=== PATIENT | female | born 1945 | race Caucasian/White ===

== ENCOUNTER 2020-04-06 13:45 | Inpatient (IN) ==
[2020-04-06 14:47] LABS: Albumin 3.6 G/DL (3.4-5.0); Bilirubin,Total 0.4 MG/DL (0.2-1.0); Calcium 8.5 MG/DL (8.5-10.1); Osmolality,Calculated 265.8 MOS/KG (273-304); Potassium 3.9 MMOL/L (3.5-5.1); Total Protein 6.7 G/DL (6.4-8.3)
[2020-04-06 15:01] LABS: Basophils % 0.2 % (0.0-0.8); Eosinophils % 0.1 % (0.00-10.9); Hematocrit 39.7 VOL% (35.7-47.0); Hemoglobin 10.9 GM/DL (12.0-16.0); Immature Granulocytes % 0.9 %; Immature Granulocytes Absolute 0.09 #; Lymphocytes # 0.3 10*3/uL (1.4-4.0); Lymphocytes % 2.5 % (21.3-54.2); Mean Corpuscular HGB Conc 27.5 GM/DL (32-36); Mean Corpuscular Volume 65.1 FL (87-102); Monocytes % 0.8 % (1.7-12.7); Neutrophils % 95.5 % (38.7-73.9); Platelet Count 191 T/CUMM (130-400); Red Cell Distribution Width 22.6 % (9.3-17.3); White Blood Count 10.5 T/CUMM (4-12)
[2020-04-06 15:02] LABS: Partial Thromboplastin Time 37.7 SECS (23.9-33.8)
[2020-04-06 15:25] LABS: Band Neutrophils 3 % (0-10); Lymphocytes 2 % (20-55); Platelet Estimate Normal; Segmented Neutrophils 94 % (50-85); Total Cells Counted 100
[2020-04-06 15:26] LABS: Hypochromasia 1+
[2020-04-06] MEDS ORDERED: GLUCAGON 1 MG VIAL IM PRN (16:28)
[2020-04-06] MEDS ORDERED: DEXTROSE 50% 25 GM/50 ML VIAL IV PRN (16:28)
[2020-04-06] MEDS ORDERED: ACETAMINOPHEN 325 MG TABLET PO PRN (16:28)
[2020-04-06] MEDS ORDERED: ONDANSETRON 4 MG/2 ML VIAL IV PRN (16:28)
[2020-04-06] MEDS: INSULIN REGULAR 100 UNIT/ML SUBCUT SCH ×2 (19:05→22:05)
[2020-04-06] MEDS ORDERED: GABAPENTIN 600 MG TABLET PO SCH (21:00)
[2020-04-06] MEDS: CLORAZEPATE 7.5 MG TABLET PO PRN (21:31)
[2020-04-06] MEDS: amLODIPine 5 MG TABLET PO SCH (21:32)
[2020-04-06] MEDS: GABAPENTIN 600 MG TABLET PO SCH (21:32)
[2020-04-06] MEDS: traMADol 50 MG TABLET PO PRN (21:33)
[2020-04-06] MEDS: ENOXAPARIN 40 MG/0.4 ML SYRINGE SUBCUT SCH (21:35)
[2020-04-07 06:25] LABS: Bilirubin,Total 1.3 MG/DL (0.2-1.0); Calcium 8.5 MG/DL (8.5-10.1); Osmolality,Calculated 265.4 MOS/KG (273-304)
[2020-04-07] MEDS: LEVOTHYROXINE 150 MCG TABLET PO SCH (06:36)
[2020-04-07] MEDS: INSULIN REGULAR 100 UNIT/ML SUBCUT SCH ×4 (07:04→20:19)
[2020-04-07] MEDS ORDERED: ROSUVASTATIN 10 MG TABLET PO SCH (09:00)
[2020-04-07] MEDS: ASPIRIN 325 MG TABLET PO SCH (09:14)
[2020-04-07] MEDS: ENALAPRIL 20 MG TABLET PO SCH (09:15)
[2020-04-07] MEDS: hydroCHLOROthiazide 25 MG TABLET PO SCH (09:15)
[2020-04-07] MEDS: PANTOPRAZOLE 40 MG TABLET PO SCH (09:15)
[2020-04-07] MEDS: GABAPENTIN 600 MG TABLET PO SCH ×3 (09:15→20:19)
[2020-04-07] MEDS: FLUoxetine 20 MG CAPSULE PO SCH (09:42)
[2020-04-07] MEDS: NICOTINE 14 MG/24 HR PATCH TRANSDERM PRN (18:22)
[2020-04-07] MEDS: amLODIPine 5 MG TABLET PO SCH (20:19)
[2020-04-07] MEDS: ROSUVASTATIN 10 MG TABLET PO SCH (20:19)
[2020-04-07] MEDS: ENOXAPARIN 40 MG/0.4 ML SYRINGE SUBCUT SCH (20:19)
[2020-04-07] MEDS: CLORAZEPATE 7.5 MG TABLET PO PRN (20:30)
[2020-04-07] MEDS: traMADol 50 MG TABLET PO PRN (20:30)
[2020-04-08] MEDS: LEVOTHYROXINE 150 MCG TABLET PO SCH (05:54)
[2020-04-08] MEDS: CLORAZEPATE 7.5 MG TABLET PO PRN ×2 (08:33→21:09)
[2020-04-08] MEDS: hydroCHLOROthiazide 25 MG TABLET PO SCH (08:33)
[2020-04-08] MEDS: FLUoxetine 20 MG CAPSULE PO SCH (08:34)
[2020-04-08] MEDS: GABAPENTIN 600 MG TABLET PO SCH ×3 (08:34→20:52)
[2020-04-08] MEDS: ENALAPRIL 20 MG TABLET PO SCH (08:34)
[2020-04-08] MEDS: ASPIRIN 325 MG TABLET PO SCH (08:34)
[2020-04-08] MEDS: PANTOPRAZOLE 40 MG TABLET PO SCH (08:34)
[2020-04-08] MEDS: traMADol 50 MG TABLET PO PRN ×2 (08:35→21:08)
[2020-04-08] MEDS: INSULIN REGULAR 100 UNIT/ML SUBCUT SCH ×4 (09:47→21:53)
[2020-04-08] MEDS: NICOTINE 14 MG/24 HR PATCH TRANSDERM PRN (17:16)
[2020-04-08] MEDS: ENOXAPARIN 40 MG/0.4 ML SYRINGE SUBCUT SCH (20:51)
[2020-04-08] MEDS: ROSUVASTATIN 10 MG TABLET PO SCH (20:52)
[2020-04-09] MEDS: LEVOTHYROXINE 150 MCG TABLET PO SCH (05:59)
[2020-04-09 07:20] LABS: Calcium 8.6 MG/DL (8.5-10.1); Osmolality,Calculated 266.4 MOS/KG (273-304); Potassium 4.1 MMOL/L (3.5-5.1)
[2020-04-09 08:31] LABS: Basophils % 0.6 % (0.0-0.8); Eosinophils # 0.2 10*3/uL (0.0-0.87); Eosinophils % 2.9 % (0.00-10.9); Hematocrit 29.2 VOL% (35.7-47.0); Immature Granulocytes % 0.8 %; Immature Granulocytes Absolute 0.04 #; Lymphocytes # 0.7 10*3/uL (1.4-4.0); Lymphocytes % 13.8 % (21.3-54.2); Mean Corpuscular HGB Conc 27.7 GM/DL (32-36); Mean Corpuscular Volume 66.4 FL (87-102); Mean Platelet Volume 9.8 FL (9.6-12.0); Monocytes % 8.6 % (1.7-12.7); Neutrophils % 73.3 % (38.7-73.9); Platelet Count 185 T/CUMM (130-400); Red Cell Distribution Width 22.8 % (9.3-17.3); White Blood Count 5.2 T/CUMM (4-12)
[2020-04-09 08:36] LABS: Hemoglobin 8.1 GM/DL (12.0-16.0)
[2020-04-09] MEDS: ENALAPRIL 20 MG TABLET PO SCH (08:51)
[2020-04-09] MEDS: hydroCHLOROthiazide 25 MG TABLET PO SCH (08:51)
[2020-04-09] MEDS: PANTOPRAZOLE 40 MG TABLET PO SCH (08:52)
[2020-04-09] MEDS: GABAPENTIN 600 MG TABLET PO SCH ×3 (08:52→20:51)
[2020-04-09] MEDS: FLUoxetine 20 MG CAPSULE PO SCH (08:58)
[2020-04-09] MEDS: ASPIRIN 325 MG TABLET PO SCH (08:58)
[2020-04-09] MEDS: CLORAZEPATE 7.5 MG TABLET PO PRN ×2 (09:01→20:51)
[2020-04-09] MEDS: traMADol 50 MG TABLET PO PRN ×2 (09:01→20:51)
[2020-04-09 09:22] LABS: Platelet Estimate Adequate
[2020-04-09 09:23] LABS: Hypochromasia 1+; Microcytosis 1+
[2020-04-09] MEDS: INSULIN REGULAR 100 UNIT/ML SUBCUT SCH ×4 (09:44→20:45)
[2020-04-09] MEDS: POLYETHYLENE GLYCOL POWDER 17 GM PACK PO SCH (15:47)
[2020-04-09] MEDS: NICOTINE 14 MG/24 HR PATCH TRANSDERM PRN (18:51)
[2020-04-09] MEDS: ROSUVASTATIN 10 MG TABLET PO SCH (20:44)
[2020-04-09] MEDS: ENOXAPARIN 40 MG/0.4 ML SYRINGE SUBCUT SCH (20:44)
[2020-04-10 04:24] LABS: ABG Base Excess 3.5 MMOL/L (-2.5-2.5); ABG HCO3 27.4 MMOL/L (20-26); ABG Oxygen Saturation 97.1 % (95-100); ABG PCO2 38.1 MM HG (35-48); ABG PH 7.474 (7.35-7.45); ABG PO2 93.9 MM HG (80-95); ABG TCO2 28.5 MMOL/L (23-27)
[2020-04-10 06:33] LABS: Calcium 8.5 MG/DL (8.5-10.1); Osmolality,Calculated 266.4 MOS/KG (273-304); Potassium 4.2 MMOL/L (3.5-5.1)
[2020-04-10 06:37] LABS: Albumin 3.1 G/DL (3.4-5.0); Bilirubin,Total 0.6 MG/DL (0.2-1.0); Calcium 8.3 MG/DL (8.5-10.1); Osmolality,Calculated 266.4 MOS/KG (273-304); Potassium 4.2 MMOL/L (3.5-5.1); Total Protein 6.2 G/DL (6.4-8.3)
[2020-04-10 06:43] LABS: Basophils % 0.8 % (0.0-0.8); Eosinophils # 0.2 10*3/uL (0.0-0.87); Eosinophils % 5.5 % (0.00-10.9); Hematocrit 28.2 VOL% (35.7-47.0); Immature Granulocytes % 1.8 %; Immature Granulocytes Absolute 0.07 #; Lymphocytes # 0.7 10*3/uL (1.4-4.0); Lymphocytes % 17.9 % (21.3-54.2); Mean Corpuscular HGB Conc 28.4 GM/DL (32-36); Mean Corpuscular Volume 66.8 FL (87-102); Mean Platelet Volume 9.3 FL (9.6-12.0); Monocytes % 8.1 % (1.7-12.7); Neutrophils % 65.9 % (38.7-73.9); Platelet Count 172 T/CUMM (130-400); Red Blood Count 4.22 MC/CUMM (3.8-5.5); Red Cell Distribution Width 23.4 % (9.3-17.3)
[2020-04-10 06:46] LABS: Anisocytosis 2+; Ovalocytes Few; Platelet Estimate Normal; Polychromasia Slight
[2020-04-10 06:47] LABS: Hypochromasia Slight; Target Cells Few
[2020-04-10] MEDS ORDERED: SODIUM CHLORIDE 0.9% 1,000 ML IV SCH (08:00)
[2020-04-10] MEDS: FLUoxetine 20 MG CAPSULE PO SCH (08:59)
[2020-04-10] MEDS: ASPIRIN 325 MG TABLET PO SCH (08:59)
[2020-04-10] MEDS ORDERED: CHLORHEXIDINE 4% SOLN 118 ML BOTTLE TOP SCH (09:00)
[2020-04-10] MEDS: ENALAPRIL 20 MG TABLET PO SCH (09:00)
[2020-04-10] MEDS: hydroCHLOROthiazide 25 MG TABLET PO SCH (09:00)
[2020-04-10] MEDS: POLYETHYLENE GLYCOL POWDER 17 GM PACK PO SCH (09:01)
[2020-04-10] MEDS: GABAPENTIN 600 MG TABLET PO SCH ×3 (09:01→20:13)
[2020-04-10] MEDS: CHLORHEXIDINE 0.12% ORAL RINSE 60 ML BOTTLE SWISH/SPIT SCH ×2 (09:01→20:33)
[2020-04-10] MEDS: PANTOPRAZOLE 40 MG TABLET PO SCH (09:02)
[2020-04-10] MEDS: INSULIN REGULAR 100 UNIT/ML SUBCUT SCH ×4 (09:02→20:15)
[2020-04-10] MEDS: traMADol 50 MG TABLET PO PRN ×2 (09:17→20:17)
[2020-04-10] MEDS: CLORAZEPATE 7.5 MG TABLET PO PRN ×2 (09:17→20:14)
[2020-04-10] MEDS: LEVOTHYROXINE 150 MCG TABLET PO SCH (09:43)
[2020-04-10] MEDS: NICOTINE 14 MG/24 HR PATCH TRANSDERM PRN (20:14)
[2020-04-10] MEDS: ROSUVASTATIN 10 MG TABLET PO SCH (20:14)
[2020-04-10] MEDS: ENOXAPARIN 40 MG/0.4 ML SYRINGE SUBCUT SCH (20:15)
[2020-04-11] MEDS ORDERED: CEFUROXIME INJ 1,500 MG in SODIUM CHLORIDE 0.9% 100 ML IV ONE (05:00)
[2020-04-11 05:59] LABS: Calcium 8.5 MG/DL (8.5-10.1); Osmolality,Calculated 265.4 MOS/KG (273-304); Potassium 4.3 MMOL/L (3.5-5.1)
[2020-04-11 06:12] LABS: Basophils % 0.8 % (0.0-0.8); Eosinophils # 0.2 10*3/uL (0.0-0.87); Eosinophils % 5.3 % (0.00-10.9); Hematocrit 30.3 VOL% (35.7-47.0); Hemoglobin 8.2 GM/DL (12.0-16.0); Immature Granulocytes % 1.6 %; Immature Granulocytes Absolute 0.06 #; Lymphocytes # 0.7 10*3/uL (1.4-4.0); Lymphocytes % 17.6 % (21.3-54.2); Mean Corpuscular HGB Conc 27.1 GM/DL (32-36); Mean Corpuscular Volume 68.7 FL (87-102); Monocytes % 10.2 % (1.7-12.7); Neutrophils % 64.5 % (38.7-73.9); Platelet Count 177 T/CUMM (130-400); Red Blood Count 4.41 MC/CUMM (3.8-5.5); Red Cell Distribution Width 24.4 % (9.3-17.3); White Blood Count 3.7 T/CUMM (4-12)
[2020-04-11] MEDS: LEVOTHYROXINE 150 MCG TABLET PO SCH (06:20)
[2020-04-11 06:43] LABS: Hypochromasia 1+; Microcytosis 1+; Ovalocytes Slight; Platelet Estimate Adequate
[2020-04-11] MEDS ORDERED: SODIUM CHLORIDE 0.9% 1,000 ML IV SCH (08:00)
[2020-04-11] MEDS ORDERED: CHLORHEXIDINE 4% SOLN 118 ML BOTTLE TOP SCH (09:00)
[2020-04-11] MEDS: hydroCHLOROthiazide 25 MG TABLET PO SCH (09:39)
[2020-04-11] MEDS: GABAPENTIN 600 MG TABLET PO SCH ×3 (09:39→21:34)
[2020-04-11] MEDS: ENALAPRIL 20 MG TABLET PO SCH (09:39)
[2020-04-11] MEDS: FLUoxetine 20 MG CAPSULE PO SCH (09:39)
[2020-04-11] MEDS: POLYETHYLENE GLYCOL POWDER 17 GM PACK PO SCH ×2 (09:39→21:32)
[2020-04-11] MEDS: PANTOPRAZOLE 40 MG TABLET PO SCH (09:39)
[2020-04-11] MEDS: ASPIRIN 325 MG TABLET PO SCH (09:39)
[2020-04-11] MEDS: INSULIN REGULAR 100 UNIT/ML SUBCUT SCH ×4 (09:40→22:12)
[2020-04-11] MEDS: CLORAZEPATE 7.5 MG TABLET PO PRN ×2 (09:52→21:33)
[2020-04-11] MEDS: NAPROXEN 500 MG TABLET PO PRN (09:52)
[2020-04-11] MEDS: CHLORHEXIDINE 0.12% ORAL RINSE 60 ML BOTTLE SWISH/SPIT SCH (11:46)
[2020-04-11] MEDS: NICOTINE 14 MG/24 HR PATCH TRANSDERM PRN (13:42)
[2020-04-11] MEDS ORDERED: MAGNESIUM HYDROXIDE SUSP 30 ML UDCUP PO PRN (17:11)
[2020-04-11] MEDS ORDERED: MAGNESIUM HYDROXIDE SUSP 30 ML UDCUP PO ONE (17:11)
[2020-04-11] MEDS: ROSUVASTATIN 10 MG TABLET PO SCH (21:33)
[2020-04-11] MEDS: traMADol 50 MG TABLET PO PRN (21:33)
[2020-04-12 05:50] LABS: Basophils % 0.7 % (0.0-0.8); Eosinophils # 0.3 10*3/uL (0.0-0.87); Eosinophils % 6.2 % (0.00-10.9); Hematocrit 29.5 VOL% (35.7-47.0); Hemoglobin 8.5 GM/DL (12.0-16.0); Immature Granulocytes Absolute 0.04 #; Lymphocytes # 0.8 10*3/uL (1.4-4.0); Lymphocytes % 19.1 % (21.3-54.2); Mean Corpuscular HGB Conc 28.8 GM/DL (32-36); Mean Corpuscular Volume 68.4 FL (87-102); Mean Platelet Volume 9.9 FL (9.6-12.0); Monocytes % 12.1 % (1.7-12.7); Neutrophils % 60.9 % (38.7-73.9); Platelet Count 152 T/CUMM (130-400); Red Blood Count 4.31 MC/CUMM (3.8-5.5); Red Cell Distribution Width 24.9 % (9.3-17.3)
[2020-04-12] MEDS: LEVOTHYROXINE 150 MCG TABLET PO SCH (06:06)
[2020-04-12 06:07] LABS: Calcium 8.6 MG/DL (8.5-10.1); Calcium 9.1 MG/DL (8.5-10.1); Osmolality,Calculated 263.7 MOS/KG (273-304); Osmolality,Calculated 266.4 MOS/KG (273-304); Potassium 4.4 MMOL/L (3.5-5.1); Potassium 4.5 MMOL/L (3.5-5.1)
[2020-04-12 06:09] LABS: Hypochromasia 1+; Microcytosis 1+; Ovalocytes Slight; Platelet Estimate Adequate
[2020-04-12] MEDS: CLORAZEPATE 7.5 MG TABLET PO PRN ×2 (08:43→22:17)
[2020-04-12] MEDS: hydroCHLOROthiazide 25 MG TABLET PO SCH (08:43)
[2020-04-12] MEDS: ASPIRIN 325 MG TABLET PO SCH (08:43)
[2020-04-12] MEDS: GABAPENTIN 600 MG TABLET PO SCH ×3 (08:44→22:18)
[2020-04-12] MEDS: PANTOPRAZOLE 40 MG TABLET PO SCH (08:44)
[2020-04-12] MEDS: FLUoxetine 20 MG CAPSULE PO SCH (08:44)
[2020-04-12] MEDS: traMADol 50 MG TABLET PO PRN ×2 (08:44→22:17)
[2020-04-12] MEDS: ENALAPRIL 20 MG TABLET PO SCH (08:44)
[2020-04-12] MEDS: CHLORHEXIDINE 0.12% ORAL RINSE 60 ML BOTTLE SWISH/SPIT SCH ×2 (08:44→22:21)
[2020-04-12] MEDS: POLYETHYLENE GLYCOL POWDER 17 GM PACK PO SCH (08:45)
[2020-04-12] MEDS: INSULIN REGULAR 100 UNIT/ML SUBCUT SCH ×3 (08:45→16:30)
[2020-04-12] MEDS ORDERED: BISACODYL 10 MG SUPP RECTAL ONE (09:57)
[2020-04-12] MEDS: ASCORBIC ACID 500 MG TABLET PO SCH ×2 (12:26→22:19)
[2020-04-12] MEDS: NICOTINE 14 MG/24 HR PATCH TRANSDERM PRN (18:14)
[2020-04-12] MEDS: ROSUVASTATIN 10 MG TABLET PO SCH (22:17)
[2020-04-13] MEDS: POLYETHYLENE GLYCOL POWDER 17 GM PACK PO SCH ×3 (00:09→20:47)
[2020-04-13] MEDS: INSULIN REGULAR 100 UNIT/ML SUBCUT SCH ×5 (00:09→20:47)
[2020-04-13] MEDS ORDERED: CEFUROXIME INJ 1,500 MG in SYRINGE 1 EACH IV ONE (05:00)
[2020-04-13] MEDS: LEVOTHYROXINE 150 MCG TABLET PO SCH (05:39)
[2020-04-13 06:11] LABS: Osmolality,Calculated 266.4 MOS/KG (273-304); Potassium 4.9 MMOL/L (3.5-5.1)
[2020-04-13 06:24] LABS: Calcium 8.8 MG/DL (8.5-10.1); Osmolality,Calculated 267.4 MOS/KG (273-304); Potassium 4.8 MMOL/L (3.5-5.1)
[2020-04-13 06:27] LABS: Basophils % 0.9 % (0.0-0.8); Eosinophils # 0.2 10*3/uL (0.0-0.87); Eosinophils % 5.4 % (0.00-10.9); Hematocrit 30.4 VOL% (35.7-47.0); Hemoglobin 8.7 GM/DL (12.0-16.0); Immature Granulocytes % 1.1 %; Immature Granulocytes Absolute 0.05 #; Lymphocytes # 0.7 10*3/uL (1.4-4.0); Mean Corpuscular HGB Conc 28.6 GM/DL (32-36); Mean Corpuscular Volume 68.2 FL (87-102); Mean Platelet Volume 9.2 FL (9.6-12.0); Monocytes % 9.9 % (1.7-12.7); Neutrophils % 66.7 % (38.7-73.9); Platelet Count 152 T/CUMM (130-400); Red Blood Count 4.46 MC/CUMM (3.8-5.5); Red Cell Distribution Width 26.4 % (9.3-17.3); White Blood Count 4.4 T/CUMM (4-12)
[2020-04-13 06:35] LABS: Hypochromasia 1+; Microcytosis 1+; Platelet Estimate Adequate
[2020-04-13] MEDS: CHLORHEXIDINE 4% SOLN 118 ML BOTTLE TOP SCH ×3 (09:16→21:40)
[2020-04-13] MEDS: CHLORHEXIDINE 0.12% ORAL RINSE 60 ML BOTTLE SWISH/SPIT SCH ×2 (09:16→20:48)
[2020-04-13] MEDS: SODIUM CHLORIDE 0.9% 1,000 ML IV SCH (09:16)
[2020-04-13] MEDS: ASPIRIN 325 MG TABLET PO SCH (09:29)
[2020-04-13] MEDS: hydroCHLOROthiazide 25 MG TABLET PO SCH (09:30)
[2020-04-13] MEDS: ENALAPRIL 20 MG TABLET PO SCH (09:30)
[2020-04-13] MEDS: ASCORBIC ACID 500 MG TABLET PO SCH ×2 (09:30→20:46)
[2020-04-13] MEDS: FLUoxetine 20 MG CAPSULE PO SCH (09:30)
[2020-04-13] MEDS: GABAPENTIN 600 MG TABLET PO SCH ×3 (09:31→20:46)
[2020-04-13] MEDS: PANTOPRAZOLE 40 MG TABLET PO SCH (09:31)
[2020-04-13] MEDS: CLORAZEPATE 7.5 MG TABLET PO PRN ×2 (09:37→20:55)
[2020-04-13] MEDS: NAPROXEN 500 MG TABLET PO PRN (09:37)
[2020-04-13] MEDS: ROSUVASTATIN 10 MG TABLET PO SCH (20:45)
[2020-04-13] MEDS: NICOTINE 14 MG/24 HR PATCH TRANSDERM PRN (20:46)
[2020-04-13] MEDS: traMADol 50 MG TABLET PO PRN (20:55)
[2020-04-14] MEDS: LEVOTHYROXINE 150 MCG TABLET PO SCH (06:11)
[2020-04-14 06:36] LABS: Calcium 8.8 MG/DL (8.5-10.1); Osmolality,Calculated 266.5 MOS/KG (273-304); Potassium 3.9 MMOL/L (3.5-5.1)
[2020-04-14 06:44] LABS: Basophils % 0.7 % (0.0-0.8); Eosinophils # 0.2 10*3/uL (0.0-0.87); Eosinophils % 4.7 % (0.00-10.9); Hematocrit 32.9 VOL% (35.7-47.0); Hemoglobin 9.3 GM/DL (12.0-16.0); Immature Granulocytes % 0.9 %; Immature Granulocytes Absolute 0.04 #; Lymphocytes # 0.7 10*3/uL (1.4-4.0); Lymphocytes % 15.6 % (21.3-54.2); Mean Corpuscular HGB Conc 28.3 GM/DL (32-36); Mean Corpuscular Volume 70.1 FL (87-102); Monocytes % 7.1 % (1.7-12.7); Platelet Count 170 T/CUMM (130-400); Red Blood Count 4.69 MC/CUMM (3.8-5.5); Red Cell Distribution Width 26.8 % (9.3-17.3); White Blood Count 4.5 T/CUMM (4-12)
[2020-04-14] MEDS: INSULIN REGULAR 100 UNIT/ML SUBCUT SCH ×4 (08:08→21:23)
[2020-04-14] MEDS: CHLORHEXIDINE 0.12% ORAL RINSE 60 ML BOTTLE SWISH/SPIT SCH ×2 (08:09→21:24)
[2020-04-14] MEDS: SODIUM CHLORIDE 0.9% 1,000 ML IV SCH (08:09)
[2020-04-14] MEDS: hydroCHLOROthiazide 25 MG TABLET PO SCH (08:49)
[2020-04-14] MEDS: POLYETHYLENE GLYCOL POWDER 17 GM PACK PO SCH ×2 (08:49→21:23)
[2020-04-14] MEDS: ASPIRIN 325 MG TABLET PO SCH (08:49)
[2020-04-14] MEDS: ENALAPRIL 20 MG TABLET PO SCH (08:49)
[2020-04-14] MEDS: ASCORBIC ACID 500 MG TABLET PO SCH ×2 (08:49→21:22)
[2020-04-14] MEDS: FLUoxetine 20 MG CAPSULE PO SCH (08:50)
[2020-04-14] MEDS: PANTOPRAZOLE 40 MG TABLET PO SCH (08:50)
[2020-04-14] MEDS: GABAPENTIN 600 MG TABLET PO SCH ×3 (08:50→21:22)
[2020-04-14] MEDS: traMADol 50 MG TABLET PO PRN ×2 (09:21→21:22)
[2020-04-14] MEDS: CLORAZEPATE 7.5 MG TABLET PO PRN ×2 (09:21→21:23)
[2020-04-14] MEDS: NICOTINE 14 MG/24 HR PATCH TRANSDERM PRN (14:07)
[2020-04-14] MEDS: ROSUVASTATIN 10 MG TABLET PO SCH (21:22)
[2020-04-15] MEDS: LEVOTHYROXINE 150 MCG TABLET PO SCH (05:34)
[2020-04-15 06:00] LABS: Calcium 8.9 MG/DL (8.5-10.1); Osmolality,Calculated 263.7 MOS/KG (273-304); Potassium 4.5 MMOL/L (3.5-5.1)
[2020-04-15 06:21] LABS: Eosinophils # 0.2 10*3/uL (0.0-0.87); Eosinophils % 5.4 % (0.00-10.9); Hematocrit 31.8 VOL% (35.7-47.0); Immature Granulocytes % 0.7 %; Immature Granulocytes Absolute 0.03 #; Lymphocytes # 0.8 10*3/uL (1.4-4.0); Lymphocytes % 19.1 % (21.3-54.2); Mean Corpuscular HGB Conc 28.3 GM/DL (32-36); Mean Corpuscular Volume 70.8 FL (87-102); Monocytes % 11.2 % (1.7-12.7); Neutrophils % 62.6 % (38.7-73.9); Platelet Count 162 T/CUMM (130-400); Red Blood Count 4.49 MC/CUMM (3.8-5.5); Red Cell Distribution Width 27.3 % (9.3-17.3); White Blood Count 4.1 T/CUMM (4-12)
[2020-04-15 06:30] LABS: Hypochromasia 1+; Microcytosis 1+
[2020-04-15 06:31] LABS: Platelet Estimate Adequate
[2020-04-15] MEDS: SODIUM CHLORIDE 0.9% 1,000 ML IV SCH (08:08)
[2020-04-15] MEDS: INSULIN REGULAR 100 UNIT/ML SUBCUT SCH ×4 (08:08→21:00)
[2020-04-15] MEDS: CLORAZEPATE 7.5 MG TABLET PO PRN ×2 (08:48→21:00)
[2020-04-15] MEDS: FLUoxetine 20 MG CAPSULE PO SCH (08:48)
[2020-04-15] MEDS: ASPIRIN 325 MG TABLET PO SCH (08:48)
[2020-04-15] MEDS: hydroCHLOROthiazide 25 MG TABLET PO SCH (08:48)
[2020-04-15] MEDS: ASCORBIC ACID 500 MG TABLET PO SCH ×2 (08:48→21:00)
[2020-04-15] MEDS: POLYETHYLENE GLYCOL POWDER 17 GM PACK PO SCH ×2 (08:48→21:01)
[2020-04-15] MEDS: GABAPENTIN 600 MG TABLET PO SCH ×3 (08:49→21:00)
[2020-04-15] MEDS: PANTOPRAZOLE 40 MG TABLET PO SCH (08:49)
[2020-04-15] MEDS: ENALAPRIL 20 MG TABLET PO SCH (08:49)
[2020-04-15] MEDS: traMADol 50 MG TABLET PO PRN ×2 (08:49→21:00)
[2020-04-15] MEDS: CHLORHEXIDINE 0.12% ORAL RINSE 60 ML BOTTLE SWISH/SPIT SCH ×2 (08:50→21:00)
[2020-04-15] MEDS: ROSUVASTATIN 10 MG TABLET PO SCH (21:01)
[2020-04-16] MEDS: LEVOTHYROXINE 150 MCG TABLET PO SCH (05:32)
[2020-04-16 06:54] LABS: Albumin 3.5 G/DL (3.4-5.0); Bilirubin,Total 0.7 MG/DL (0.2-1.0); Calcium 8.9 MG/DL (8.5-10.1); Osmolality,Calculated 261.8 MOS/KG (273-304); Potassium 4.5 MMOL/L (3.5-5.1); Total Protein 6.8 G/DL (6.4-8.3)
[2020-04-16 07:16] LABS: Basophils % 0.7 % (0.0-0.8); Eosinophils # 0.3 10*3/uL (0.0-0.87); Eosinophils % 5.7 % (0.00-10.9); Hematocrit 31.2 VOL% (35.7-47.0); Immature Granulocytes % 0.7 %; Immature Granulocytes Absolute 0.03 #; Lymphocytes # 0.6 10*3/uL (1.4-4.0); Lymphocytes % 14.3 % (21.3-54.2); Mean Corpuscular HGB Conc 27.9 GM/DL (32-36); Mean Corpuscular Volume 71.4 FL (87-102); Mean Platelet Volume 10.4 FL (9.6-12.0); Monocytes % 9.4 % (1.7-12.7); Neutrophils % 69.2 % (38.7-73.9); Platelet Count 161 T/CUMM (130-400); Red Blood Count 4.37 MC/CUMM (3.8-5.5); Red Cell Distribution Width 27.6 % (9.3-17.3); White Blood Count 4.4 T/CUMM (4-12)
[2020-04-16 07:18] LABS: Hemoglobin 8.7 GM/DL (12.0-16.0)
[2020-04-16 07:35] LABS: Hypochromasia 2+
[2020-04-16 07:36] LABS: Anisocytosis 1+; Microcytosis 1+; Ovalocytes Slight; Platelet Estimate Adequate
[2020-04-16] MEDS: NICOTINE 14 MG/24 HR PATCH TRANSDERM PRN (09:28)
[2020-04-16] MEDS: FLUoxetine 20 MG CAPSULE PO SCH (09:29)
[2020-04-16] MEDS: traMADol 50 MG TABLET PO PRN ×2 (09:29→22:09)
[2020-04-16] MEDS: ASPIRIN 325 MG TABLET PO SCH (09:29)
[2020-04-16] MEDS: ASCORBIC ACID 500 MG TABLET PO SCH ×2 (09:29→22:10)
[2020-04-16] MEDS: hydroCHLOROthiazide 25 MG TABLET PO SCH (09:29)
[2020-04-16] MEDS: CLORAZEPATE 7.5 MG TABLET PO PRN ×2 (09:29→22:09)
[2020-04-16] MEDS: CHLORHEXIDINE 0.12% ORAL RINSE 60 ML BOTTLE SWISH/SPIT SCH ×3 (09:31→22:22)
[2020-04-16] MEDS: PANTOPRAZOLE 40 MG TABLET PO SCH (09:31)
[2020-04-16] MEDS: ENALAPRIL 20 MG TABLET PO SCH (09:31)
[2020-04-16] MEDS: POLYETHYLENE GLYCOL POWDER 17 GM PACK PO SCH (09:32)
[2020-04-16] MEDS: CHLORHEXIDINE 4% SOLN 118 ML BOTTLE TOP SCH ×2 (09:32→15:06)
[2020-04-16] MEDS: SODIUM CHLORIDE 0.9% 1,000 ML IV SCH ×2 (09:33→11:36)
[2020-04-16] MEDS: INSULIN REGULAR 100 UNIT/ML SUBCUT SCH ×3 (09:33→15:45)
[2020-04-16] MEDS: GABAPENTIN 600 MG TABLET PO SCH ×3 (09:35→22:12)
[2020-04-16] MEDS: ROSUVASTATIN 10 MG TABLET PO SCH (22:09)
[2020-04-17] MEDS: POLYETHYLENE GLYCOL POWDER 17 GM PACK PO SCH ×2 (00:12→13:24)
[2020-04-17] MEDS: CHLORHEXIDINE 0.12% ORAL RINSE 60 ML BOTTLE SWISH/SPIT SCH ×5 (00:13→20:34)
[2020-04-17] MEDS: INSULIN REGULAR 100 UNIT/ML SUBCUT SCH ×2 (00:13→13:22)
[2020-04-17] MEDS ORDERED: VANCOMYCIN 1,000 MG VIAL ONE (04:33)
[2020-04-17] MEDS ORDERED: PAPAVERINE 60 MG/2 ML VIAL ONE (04:34)
[2020-04-17] MEDS ORDERED: VANCOMYCIN 500 MG VIAL ONE (04:34)
[2020-04-17] MEDS ORDERED: CEFUROXIME INJ 1,500 MG in SYRINGE 1 EACH IV ONE (05:00)
[2020-04-17] MEDS: CHLORHEXIDINE 4% SOLN 118 ML BOTTLE TOP SCH (05:06)
[2020-04-17] MEDS ORDERED: SUFentanil 250 MCG/5 ML AMP IV ONE (05:52)
[2020-04-17] MEDS ORDERED: LIDOCAINE 2% 5 ML VIAL MISC INJ ONE (05:52)
[2020-04-17] MEDS ORDERED: MIDAZOLAM 10 MG/2 ML VIAL IV ONE (05:52)
[2020-04-17] MEDS ORDERED: VECURONIUM 10 MG VIAL IV ONE (05:52)
[2020-04-17] MEDS ORDERED: SEVOFLURANE 1 UNIT/15 MINUTE INH ONE (05:52)
[2020-04-17] MEDS ORDERED: AMINOCAPROIC ACID 5,000 MG/20 ML VIAL IV ONE (05:52)
[2020-04-17] MEDS ORDERED: CALCIUM CHLORIDE 1,000 MG/10 ML SYRINGE IV ONE ×2 (05:52→07:29)
[2020-04-17] MEDS ORDERED: DIAZEPAM 5 MG TABLET PO ONE (06:06)
[2020-04-17] MEDS: LEVOTHYROXINE 150 MCG TABLET PO SCH (06:31)
[2020-04-17] MEDS: SODIUM CHLORIDE 0.9% 1,000 ML IV SCH ×3 (06:31→13:24)
[2020-04-17] MEDS: ENALAPRIL 20 MG TABLET PO SCH ×2 (06:32→13:30)
[2020-04-17] MEDS: hydroCHLOROthiazide 25 MG TABLET PO SCH ×2 (06:32→13:24)
[2020-04-17] MEDS ORDERED: SODIUM BICARBONATE 50 MEQ/50 ML VIAL IV ONE ×2 (07:28→10:44)
[2020-04-17] MEDS ORDERED: NITROPRUSSIDE 50 MG/2 ML VIAL ONE (07:28)
[2020-04-17] MEDS ORDERED: POTASSIUM CHLORIDE RIDER 100 ML IV ONE (07:28)
[2020-04-17] MEDS ORDERED: PHENYLEPHRINE DRIP 40 MG/250 ML PREMIX IV ONE (07:29)
[2020-04-17 08:00] LABS: ABG Base Excess -0.6 MMOL/L (-2.5-2.5); ABG PCO2 37.8 MM HG (35-48); ABG PH 7.408 (7.35-7.45); ABG TCO2 22.2 MMOL/L (23-27); Glucose Heart Surgery 105 MG/DL (74-106); Hematocrit Heart Surgery 25.3 PERCENT (37-47); Hemoglobin Heart Surgery 8.1 G/DL (12.0-16.0); Ionized Calcium Arterial 1.14 MMOL/L (1.21-1.46); PCO2 Patient Temp Arterial 37.8 MMHG; PH Patient Temp Arterial 7.408; Patient Temperature 37 CELCIUS; Potassium Heart/CVR 4.2 MMOL/L (3.5-5.1); Sodium Heart/CVR 130 MMOL/L (135-145)
[2020-04-17 08:11] LABS: Bilirubin,Urine Negative (Negative); Blood, Urine Negative (Negative); Glucose,Urine (UA) Negative (Negative); Ketones,Urine Negative (Negative); Mucus,Urine Occasional /LPF (Occasional); Nitrite,Urine Negative (Negative); Protein,Urine Negative; Urine Appearance CLEAR (Clear); Urine Color Yellow (Yellow); Urine Specific Gravity 1.011 (1.001-1.035); Urine Urobilinogen < 2.0 EU/DL (0.2-1.0)
[2020-04-17 09:30] LABS: Hematocrit Heart Surgery 23.2 PERCENT (37-47); Hemoglobin Heart Surgery 7.4 G/DL (12.0-16.0); PCO2 Patient Temp Venous 33.9 MM HG; PH Patient Temp Venous 7.4; PO2 Patient Temp Venous 39.9 MM HG; Potassium Heart/CVR 5.7 MMOL/L (3.5-5.1); VBG Base Excess -3.1 MEQ/L (0-4); VBG HCO3 21.6 MEQ/L (24-28); VBG Oxygen Saturation 82.4 %; VBG PCO2 39.2 MMHG (41-51); VBG PH 7.357; VBG Total CO2 20.8 MMOL/L
[2020-04-17 10:09] LABS: Hematocrit Heart Surgery 24.5 PERCENT (37-47); Hemoglobin Heart Surgery 7.9 G/DL (12.0-16.0); PCO2 Patient Temp Venous 35.7 MM HG; PH Patient Temp Venous 7.447; PO2 Patient Temp Venous 37.9 MM HG; Potassium Heart/CVR 5.4 MMOL/L (3.5-5.1); VBG Base Excess 0.8 MEQ/L (0-4); VBG HCO3 24.9 MEQ/L (24-28); VBG Oxygen Saturation 73.2 %; VBG PCO2 35.7 MMHG (41-51); VBG PH 7.447; VBG PO2 37.9 MMHG (17-40); VBG Total CO2 23.1 MMOL/L
[2020-04-17] MEDS ORDERED: AMIODARONE 150 MG/3 ML VIAL ONE (10:21)
[2020-04-17 10:41] LABS: ABG Base Excess -2.3 MMOL/L (-2.5-2.5); ABG HCO3 22.5 MMOL/L (20-26); ABG PCO2 41.4 MM HG (35-48); ABG PH 7.354 (7.35-7.45); ABG TCO2 21.4 MMOL/L (23-27); Glucose Heart Surgery 224 MG/DL (74-106); Hematocrit Heart Surgery 27.8 PERCENT (37-47); Ionized Calcium Arterial 1.21 MMOL/L (1.21-1.46); PCO2 Patient Temp Arterial 41.4 MMHG; PH Patient Temp Arterial 7.354; Patient Temperature 37 CELCIUS; Potassium Heart/CVR 4.6 MMOL/L (3.5-5.1); Sodium Heart/CVR 127 MMOL/L (135-145)
[2020-04-17] MEDS ORDERED: ALBUMIN 25% 25 GM/100 ML VIAL IV ONE (10:43)
[2020-04-17] MEDS ORDERED: LIDOCAINE 2% 5 ML VIAL ONE (10:43)
[2020-04-17] MEDS ORDERED: MAGNESIUM SULFATE 5 GM/10 ML VIAL IV ONE (10:43)
[2020-04-17] MEDS ORDERED: MANNITOL 100 GM/500 ML BAG IV ONE (10:44)
[2020-04-17] MEDS ORDERED: DEXTROSE 5% KCL 20 MEQ 20 MEQ/1,000 ML BAG IV ONE (10:44)
[2020-04-17] MEDS ORDERED: PROTAMINE SULFATE 250 MG/25 ML VIAL IV ONE (10:44)
[2020-04-17] MEDS ORDERED: methylPREDNISolone SOD SUC 1,000 MG/8 ML VIAL ONE (10:44)
[2020-04-17] MEDS ORDERED: HEPARIN 10,000 UNIT/10 ML VIAL ONE (10:44)
[2020-04-17] MEDS ORDERED: FUROSEMIDE 20 MG/2 ML VIAL ONE (10:44)
[2020-04-17] MEDS ORDERED: NITROPRUSSIDE 100 MG in DEXTROSE 5% 250 ML IV PRN (11:25)
[2020-04-17] MEDS ORDERED: CALCIUM CHLORIDE 1,000 MG/10 ML SYRINGE IV PRN (11:25)
[2020-04-17] MEDS ORDERED: LACTATED RINGERS 250 ML IV PRN (11:25)
[2020-04-17] MEDS ORDERED: ACETAMINOPHEN 650 MG SUPP RECTAL PRN (11:25)
[2020-04-17] MEDS ORDERED: ONDANSETRON 4 MG/2 ML VIAL IV PRN (11:25)
[2020-04-17] MEDS ORDERED: CHLORHEXIDINE 4% SOLN 118 ML BOTTLE TOP PRN (11:25)
[2020-04-17] MEDS ORDERED: MAGNESIUM SULF RIDER 4 GM in PREMIX 1 EACH IV PRN (11:25)
[2020-04-17] MEDS ORDERED: MORPHINE 4 MG/1 ML VIAL IV PRN (11:25)
[2020-04-17] MEDS ORDERED: INSULIN REGULAR 100 UNIT/ML IV ONE (11:25)
[2020-04-17] MEDS ORDERED: PHENYLEPHRINE DRIP 40 MG/250 ML PREMIX IV PRN (11:25)
[2020-04-17] MEDS ORDERED: MAGNESIUM SULF RIDER 2 GM in PREMIX 1 EACH IV PRN (11:25)
[2020-04-17] MEDS ORDERED: MIDAZOLAM 2 MG/2 ML VIAL IV PRN (11:25)
[2020-04-17] MEDS ORDERED: MORPHINE 10 MG/1 ML VIAL IV PRN (11:25)
[2020-04-17] MEDS ORDERED: MIDAZOLAM 10 MG/2 ML VIAL IV PRN (11:25)
[2020-04-17] MEDS ORDERED: DEXTROSE 50% 25 GM/50 ML VIAL IV PRN ×2 (11:25)
[2020-04-17] MEDS ORDERED: VECURONIUM 10 MG VIAL IV PRN ×2 (11:25)
[2020-04-17] MEDS ORDERED: SODIUM CHLORIDE 0.45% 1,000 ML IV SCH ×2 (11:30)
[2020-04-17] MEDS ORDERED: INSULIN REGULAR DRIP 100 ML IV SCH (11:30)
[2020-04-17 11:47] LABS: ABG Base Excess -1.8 MMOL/L (-2.5-2.5); ABG HCO3 22.9 MMOL/L (20-26); ABG Oxygen Saturation 98.2 % (95-100); ABG PCO2 32.2 MM HG (35-48); ABG PH 7.437 (7.35-7.45); ABG PO2 95.9 MM HG (80-95); ABG TCO2 19.6 MMOL/L (23-27); Glucose Heart Surgery 194 MG/DL (74-106); Hematocrit Heart Surgery 32.8 PERCENT (37-47); Hemoglobin Heart Surgery 10.6 G/DL (12.0-16.0); Potassium Heart/CVR 3.8 MMOL/L (3.5-5.1)
[2020-04-17 11:51] LABS: Basophils % 0.2 % (0.0-0.8); Eosinophils # 0.1 10*3/uL (0.0-0.87); Eosinophils % 0.7 % (0.00-10.9); Hematocrit 34.8 VOL% (35.7-47.0); Immature Granulocytes % 1.1 %; Immature Granulocytes Absolute 0.09 #; Lymphocytes # 0.3 10*3/uL (1.4-4.0); Lymphocytes % 3.4 % (21.3-54.2); Mean Corpuscular HGB Conc 30.2 GM/DL (32-36); Mean Corpuscular Volume 75.5 FL (87-102); Monocytes % 3.6 % (1.7-12.7); Platelet Count 128 T/CUMM (130-400); Red Blood Count 4.61 MC/CUMM (3.8-5.5); Red Cell Distribution Width 28.8 % (9.3-17.3); White Blood Count 8.4 T/CUMM (4-12)
[2020-04-17 11:54] LABS: Hemoglobin 10.5 GM/DL (12.0-16.0)
[2020-04-17 12:01] LABS: INR 1.2; PT Patient Result 12.9 SECS (9.8-11.9); Partial Thromboplastin Time 36.4 SECS (23.9-33.8)
[2020-04-17 12:25] LABS: Band Neutrophils 6 % (0-10); Eosinophils 1 % (0-10); Lymphocytes 2 % (20-55); Platelet Estimate Adequate; Segmented Neutrophils 86 % (50-85); Total Cells Counted 100
[2020-04-17 12:26] LABS: Albumin 3.4 G/DL (3.4-5.0); Anisocytosis 1+; Bilirubin,Total 0.9 MG/DL (0.2-1.0); CKMB % 8.1 %; Calcium 8.3 MG/DL (8.5-10.1); Osmolality,Calculated 272.4 MOS/KG (273-304); Potassium 3.8 MMOL/L (3.5-5.1); Total Protein 5.2 G/DL (6.4-8.3)
[2020-04-17 12:27] LABS: Troponin I 2.44 NG/ML (0.00-0.045)
[2020-04-17] MEDS: ASPIRIN 325 MG TABLET PO SCH (13:24)
[2020-04-17] MEDS: GABAPENTIN 600 MG TABLET PO SCH (13:29)
[2020-04-17] MEDS: PANTOPRAZOLE 40 MG TABLET PO SCH (13:30)
[2020-04-17] MEDS: FLUoxetine 20 MG CAPSULE PO SCH (13:30)
[2020-04-17] MEDS: ASCORBIC ACID 500 MG TABLET PO SCH (13:30)
[2020-04-17] MEDS: KETOROLAC 15 MG/1 ML VIAL IV SCH ×2 (14:18→20:34)
[2020-04-17] MEDS: ALBUMIN 5% 12.5 GM in PREMIX 1 EACH IV PRN ×2 (15:22→16:05)
[2020-04-17] MEDS: CEFUROXIME INJ 1,500 MG in SYRINGE 1 EACH IV SCH (18:08)
[2020-04-17 18:25] LABS: ABG Base Excess -1.7 MMOL/L (-2.5-2.5); ABG Oxygen Saturation 98.8 % (95-100); ABG PCO2 29.5 MM HG (35-48); ABG PH 7.465 (7.35-7.45); ABG TCO2 19.4 MMOL/L (23-27); Glucose Heart Surgery 140 MG/DL (74-106); Hematocrit Heart Surgery 28.7 PERCENT (37-47); Hemoglobin Heart Surgery 9.3 G/DL (12.0-16.0); Potassium Heart/CVR 3.6 MMOL/L (3.5-5.1)
[2020-04-17] MEDS: POTASSIUM CHLORIDE RIDER 20 MEQ in PREMIX 1 EACH IV PRN ×2 (18:38→23:31)
[2020-04-17] MEDS ORDERED: FUROSEMIDE 40 MG/4 ML VIAL IV PRN (18:40)
[2020-04-17] MEDS ORDERED: DEXMEDETOMIDINE 200 MCG in SODIUM CHLORIDE 0.9% 48 ML IV PRN (18:59)
[2020-04-17] MEDS: POTASSIUM CHLORIDE RIDER 10 MEQ in PREMIX 1 EACH IV PRN (19:13)
[2020-04-17] MEDS ORDERED: hydrALAZINE 20 MG/1 ML VIAL IV PRN (19:33)
[2020-04-17 19:53] LABS: ABG Base Excess -2.5 MMOL/L (-2.5-2.5); ABG HCO3 22.3 MMOL/L (20-26); ABG Oxygen Saturation 99.1 % (95-100); ABG PCO2 39.1 MM HG (35-48); ABG PH 7.368 (7.35-7.45); ABG TCO2 20.5 MMOL/L (23-27); Glucose Heart Surgery 151 MG/DL (74-106); Hematocrit Heart Surgery 30.9 PERCENT (37-47); Potassium Heart/CVR 4.5 MMOL/L (3.5-5.1)
[2020-04-17 20:15] LABS: CKMB % 7.3 %
[2020-04-17 20:17] LABS: Troponin I 3.5 NG/ML (0.00-0.045)
[2020-04-17] MEDS: INSULIN REGULAR 100 UNIT/ML IV PRN ×2 (20:26→22:29)
[2020-04-17 22:19] LABS: ABG Base Excess -2.8 MMOL/L (-2.5-2.5); ABG Oxygen Saturation 96.8 % (95-100); ABG PH 7.449 (7.35-7.45); ABG PO2 82.4 MM HG (80-95); ABG TCO2 17.9 MMOL/L (23-27); Glucose Heart Surgery 151 MG/DL (74-106); Hematocrit Heart Surgery 35.1 PERCENT (37-47); Hemoglobin Heart Surgery 11.4 G/DL (12.0-16.0); Potassium Heart/CVR 3.8 MMOL/L (3.5-5.1)
[2020-04-17 23:14] LABS: ABG HCO3 21.8 MMOL/L (20-26); ABG Oxygen Saturation 94.1 % (95-100); ABG PCO2 42.5 MM HG (35-48); ABG PH 7.336 (7.35-7.45); ABG TCO2 20.5 MMOL/L (23-27); Glucose Heart Surgery 133 MG/DL (74-106); Hematocrit Heart Surgery 34.5 PERCENT (37-47); Hemoglobin Heart Surgery 11.2 G/DL (12.0-16.0); Potassium Heart/CVR 3.7 MMOL/L (3.5-5.1)
[2020-04-18] MEDS: POTASSIUM CHLORIDE RIDER 10 MEQ in PREMIX 1 EACH IV PRN (00:12)
[2020-04-18] MEDS: KETOROLAC 15 MG/1 ML VIAL IV SCH ×4 (02:41→21:07)
[2020-04-18 04:37] LABS: ABG Base Excess -1.5 MMOL/L (-2.5-2.5); ABG HCO3 23.1 MMOL/L (20-26); ABG Oxygen Saturation 94.7 % (95-100); ABG PCO2 44.6 MM HG (35-48); ABG PH 7.345 (7.35-7.45); ABG PO2 77.7 MM HG (80-95); Glucose Heart Surgery 121 MG/DL (74-106); Hematocrit Heart Surgery 33.8 PERCENT (37-47); Potassium Heart/CVR 4.2 MMOL/L (3.5-5.1)
[2020-04-18 04:50] LABS: Basophils % 0.1 % (0.0-0.8); Hematocrit 35.2 VOL% (35.7-47.0); Hemoglobin 10.8 GM/DL (12.0-16.0); Immature Granulocytes % 0.7 %; Immature Granulocytes Absolute 0.13 #; Lymphocytes # 0.3 10*3/uL (1.4-4.0); Lymphocytes % 1.6 % (21.3-54.2); Mean Corpuscular HGB Conc 30.7 GM/DL (32-36); Mean Corpuscular Volume 78.6 FL (87-102); Mean Platelet Volume 9.7 FL (9.6-12.0); Monocytes % 3.6 % (1.7-12.7); Platelet Count 120 T/CUMM (130-400); Red Blood Count 4.48 MC/CUMM (3.8-5.5); Red Cell Distribution Width 26.8 % (9.3-17.3); White Blood Count 17.8 T/CUMM (4-12)
[2020-04-18 05:10] LABS: Albumin 3.5 G/DL (3.4-5.0); Bilirubin,Direct 0.19 MG/DL (0.0-0.20); Bilirubin,Total 0.8 MG/DL (0.2-1.0); Calcium 8.6 MG/DL (8.5-10.1); Osmolality,Calculated 279.7 MOS/KG (273-304); Potassium 4.3 MMOL/L (3.5-5.1); Total Protein 5.7 G/DL (6.4-8.3)
[2020-04-18 05:12] LABS: CKMB % 8.6 %
[2020-04-18 05:13] LABS: Band Neutrophils 2 % (0-10); Hypochromasia 1+; Lymphocytes 2 % (20-55); Microcytosis 1+; Segmented Neutrophils 93 % (50-85); Total Cells Counted 100; Troponin I 5.38 NG/ML (0.00-0.045)
[2020-04-18 05:14] LABS: Ovalocytes Slight; Platelet Estimate Adequate
[2020-04-18] MEDS: POTASSIUM CHLORIDE RIDER 20 MEQ in PREMIX 1 EACH IV PRN (05:23)
[2020-04-18] MEDS ORDERED: GLUCAGON 1 MG VIAL IM PRN ×2 (06:03→09:42)
[2020-04-18] MEDS: CEFUROXIME INJ 1,500 MG in SYRINGE 1 EACH IV SCH (06:30)
[2020-04-18] MEDS ORDERED: INSULIN REGULAR 100 UNIT/ML SUBCUT SCH (07:30)
[2020-04-18] MEDS: CHLORHEXIDINE 0.12% ORAL RINSE 60 ML BOTTLE SWISH/SPIT SCH ×3 (08:43→21:01)
[2020-04-18] MEDS ORDERED: SODIUM CHLOR 0.45% KCL 20 MEQ 20 MEQ/1,000 ML BAG IV SCH (09:42)
[2020-04-18] MEDS ORDERED: MAGNESIUM SULF RIDER 2 GM in PREMIX 1 EACH IV PRN (09:42)
[2020-04-18] MEDS ORDERED: DEXTROSE 50% 25 GM/50 ML VIAL IV PRN (09:42)
[2020-04-18] MEDS ORDERED: MAGNESIUM SULF RIDER 4 GM in PREMIX 1 EACH IV PRN (09:42)
[2020-04-18] MEDS ORDERED: ALUMINUM/MAGNES/SIMETH MAX STR 30 ML UDCUP PO PRN (09:42)
[2020-04-18] MEDS ORDERED: ONDANSETRON 4 MG/2 ML VIAL IV PRN (09:42)
[2020-04-18] MEDS ORDERED: MAGNESIUM HYDROXIDE SUSP 30 ML UDCUP PO PRN (09:42)
[2020-04-18] MEDS: hydroCHLOROthiazide 25 MG TABLET PO SCH (11:48)
[2020-04-18] MEDS: DOCUSATE SODIUM 100 MG CAPSULE PO SCH (11:48)
[2020-04-18] MEDS: FERROUS SULFATE 325 MG TABLET PO SCH (11:49)
[2020-04-18] MEDS: PANTOPRAZOLE 40 MG TABLET PO SCH (11:49)
[2020-04-18] MEDS: ASCORBIC ACID 500 MG TABLET PO SCH ×2 (11:49→20:59)
[2020-04-18] MEDS: ASPIRIN EC 325 MG TABLET PO SCH (11:50)
[2020-04-18] MEDS: FLUoxetine 20 MG CAPSULE PO SCH (11:50)
[2020-04-18] MEDS: GABAPENTIN 600 MG TABLET PO SCH ×3 (11:50→20:59)
[2020-04-18] MEDS: NICOTINE 14 MG/24 HR PATCH TRANSDERM SCH (11:51)
[2020-04-18 18:19] LABS: CKMB % 8.2 %
[2020-04-18 18:21] LABS: Troponin I 7.14 NG/ML (0.00-0.045)
[2020-04-18] MEDS: amLODIPine 5 MG TABLET PO SCH (21:00)
[2020-04-18] MEDS: ROSUVASTATIN 10 MG TABLET PO SCH (21:00)
[2020-04-18] MEDS: traMADol 50 MG TABLET PO PRN (21:05)
[2020-04-18] MEDS ORDERED: CEFUROXIME INJ 1,500 MG in SYRINGE 1 EACH IV SCH (23:00)
[2020-04-19] MEDS: ZALEPLON 5 MG CAPSULE PO PRN ×2 (00:24→21:07)
[2020-04-19] MEDS: ACETAMINOPHEN 325 MG TABLET PO PRN (00:25)
[2020-04-19] MEDS ORDERED: CEFUROXIME INJ 1,500 MG in SYRINGE 1 EACH IV SCH (01:00)
[2020-04-19] MEDS: KETOROLAC 15 MG/1 ML VIAL IV SCH ×4 (02:09→21:08)
[2020-04-19 05:17] LABS: Basophils % 0.1 % (0.0-0.8); Hematocrit 33.4 VOL% (35.7-47.0); Immature Granulocytes % 0.8 %; Immature Granulocytes Absolute 0.11 #; Lymphocytes # 0.5 10*3/uL (1.4-4.0); Lymphocytes % 3.5 % (21.3-54.2); Mean Corpuscular HGB Conc 29.9 GM/DL (32-36); Mean Corpuscular Volume 78.8 FL (87-102); Monocytes % 4.6 % (1.7-12.7); Platelet Count 118 T/CUMM (130-400); Red Blood Count 4.24 MC/CUMM (3.8-5.5); Red Cell Distribution Width 27.8 % (9.3-17.3); White Blood Count 13.6 T/CUMM (4-12)
[2020-04-19 05:38] LABS: Albumin 2.9 G/DL (3.4-5.0); Bilirubin,Direct 0.17 MG/DL (0.0-0.20); Bilirubin,Direct 0.18 MG/DL (0.0-0.20); Bilirubin,Indirect 0.3 MG/DL (0.0-1.0); Bilirubin,Total 0.5 MG/DL (0.2-1.0); Bilirubin,Total 0.9 MG/DL (0.2-1.0); CKMB % 6.2 %; Calcium 8.3 MG/DL (8.5-10.1); Potassium 4.9 MMOL/L (3.5-5.1); Total Protein 5.6 G/DL (6.4-8.3)
[2020-04-19 05:39] LABS: Troponin I 6.95 NG/ML (0.00-0.045)
[2020-04-19 05:43] LABS: Lymphocytes 3 % (20-55); Platelet Estimate Decreased; Segmented Neutrophils 94 % (50-85); Total Cells Counted 100
[2020-04-19 05:44] LABS: Hypochromasia 1+; Microcytosis 1+
[2020-04-19] MEDS ORDERED: FUROSEMIDE 40 MG/4 ML VIAL IV ONE (06:00)
[2020-04-19] MEDS: LEVOTHYROXINE 150 MCG TABLET PO SCH (06:36)
[2020-04-19] MEDS: CEFUROXIME INJ 1,500 MG in SYRINGE 1 EACH IV SCH (06:57)
[2020-04-19] MEDS: ASCORBIC ACID 500 MG TABLET PO SCH ×2 (09:06→21:07)
[2020-04-19] MEDS: hydroCHLOROthiazide 25 MG TABLET PO SCH (09:07)
[2020-04-19] MEDS: DOCUSATE SODIUM 100 MG CAPSULE PO SCH (09:07)
[2020-04-19] MEDS: FERROUS SULFATE 325 MG TABLET PO SCH (09:07)
[2020-04-19] MEDS: PANTOPRAZOLE 40 MG TABLET PO SCH (09:07)
[2020-04-19] MEDS: GABAPENTIN 600 MG TABLET PO SCH ×3 (09:07→21:08)
[2020-04-19] MEDS: FLUoxetine 20 MG CAPSULE PO SCH (09:07)
[2020-04-19] MEDS: CHLORHEXIDINE 0.12% ORAL RINSE 60 ML BOTTLE SWISH/SPIT SCH ×2 (09:08→21:08)
[2020-04-19] MEDS: ASPIRIN EC 325 MG TABLET PO SCH (09:08)
[2020-04-19] MEDS: NICOTINE 14 MG/24 HR PATCH TRANSDERM SCH (09:08)
[2020-04-19 11:29] LABS: % Iron Saturation 6.1 % (18-50)
[2020-04-19] MEDS: ALBUTEROL/IPRATROPIUM 3 ML NEB RESP TX SCH ×2 (14:30→19:28)
[2020-04-19] MEDS: ROSUVASTATIN 10 MG TABLET PO SCH (21:07)
[2020-04-19] MEDS: amLODIPine 5 MG TABLET PO SCH (21:08)
[2020-04-20] MEDS: ALBUTEROL/IPRATROPIUM 3 ML NEB RESP TX SCH ×2 (00:21→07:03)
[2020-04-20] MEDS: KETOROLAC 15 MG/1 ML VIAL IV SCH ×4 (03:14→21:14)
[2020-04-20 06:03] LABS: Basophils % 0.1 % (0.0-0.8); Eosinophils % 0.3 % (0.00-10.9); Hematocrit 30.6 VOL% (35.7-47.0); Hemoglobin 9.3 GM/DL (12.0-16.0); Immature Granulocytes % 0.4 %; Immature Granulocytes Absolute 0.04 #; Lymphocytes # 0.6 10*3/uL (1.4-4.0); Lymphocytes % 5.7 % (21.3-54.2); Mean Corpuscular HGB Conc 30.4 GM/DL (32-36); Mean Corpuscular Volume 78.1 FL (87-102); Mean Platelet Volume 10.5 FL (9.6-12.0); Monocytes % 5.2 % (1.7-12.7); Neutrophils % 88.3 % (38.7-73.9); Platelet Count 116 T/CUMM (130-400); Red Blood Count 3.92 MC/CUMM (3.8-5.5); Red Cell Distribution Width 27.7 % (9.3-17.3); White Blood Count 10.1 T/CUMM (4-12)
[2020-04-20 06:04] LABS: Albumin 2.9 G/DL (3.4-5.0); Bilirubin,Direct 0.26 MG/DL (0.0-0.20); Bilirubin,Indirect 0.7 MG/DL (0.0-1.0); Total Protein 5.2 G/DL (6.4-8.3)
[2020-04-20 06:08] LABS: Alanine Aminotransferase 21 U/L (13-56); Albumin 2.7 G/DL (3.4-5.0); Alkaline Phosphatase 77 U/L (45-117); Aspartate Amino Transferase 43 U/L (0-37); Blood Urea Nitrogen 29 MG/DL (7-18); Calcium 8.2 MG/DL (8.5-10.1); Carbon Dioxide 30 MMOL/L (21-32); Estimated Glom Filtration Rate 87 ML/MIN; Glucose 90 MG/DL (74-106); Potassium 4.1 MMOL/L (3.5-5.1); Sodium 136 MMOL/L (136-145); Total Protein 5.6 G/DL (6.4-8.3)
[2020-04-20] MEDS ORDERED: FUROSEMIDE 40 MG/4 ML VIAL IV ONE (06:30)
[2020-04-20] MEDS: LEVOTHYROXINE 150 MCG TABLET PO SCH (06:47)
[2020-04-20] MEDS: hydroCHLOROthiazide 25 MG TABLET PO SCH (09:36)
[2020-04-20] MEDS: DOCUSATE SODIUM 100 MG CAPSULE PO SCH (09:36)
[2020-04-20] MEDS: FERROUS SULFATE 325 MG TABLET PO SCH (09:36)
[2020-04-20] MEDS: ASPIRIN EC 81 MG TABLET PO SCH (09:36)
[2020-04-20] MEDS: GABAPENTIN 600 MG TABLET PO SCH ×3 (09:37→21:14)
[2020-04-20] MEDS: CHLORHEXIDINE 0.12% ORAL RINSE 60 ML BOTTLE SWISH/SPIT SCH ×2 (09:38→21:14)
[2020-04-20] MEDS: PANTOPRAZOLE 40 MG TABLET PO SCH (09:39)
[2020-04-20] MEDS: ASCORBIC ACID 500 MG TABLET PO SCH ×2 (09:40→21:14)
[2020-04-20] MEDS: POTASSIUM CHLORIDE 20 MEQ TABLET PO PRN (09:40)
[2020-04-20] MEDS: FLUoxetine 20 MG CAPSULE PO SCH (09:40)
[2020-04-20] MEDS: NICOTINE 14 MG/24 HR PATCH TRANSDERM SCH (11:32)
[2020-04-20] MEDS: LEVALBUTEROL 0.63 MG/3 ML NEB RESP TX SCH ×2 (13:43→19:18)
[2020-04-20] MEDS ORDERED: LACTULOSE 20 GM/30 ML UDCUP PO PRN (17:20)
[2020-04-20] MEDS: ACETAMINOPHEN 325 MG TABLET PO PRN (19:56)
[2020-04-20] MEDS: ROSUVASTATIN 10 MG TABLET PO SCH (21:13)
[2020-04-20] MEDS: amLODIPine 5 MG TABLET PO SCH (21:14)
[2020-04-20] MEDS: ZALEPLON 5 MG CAPSULE PO PRN (21:14)
[2020-04-21] MEDS: LEVALBUTEROL 0.63 MG/3 ML NEB RESP TX SCH ×4 (00:20→19:34)
[2020-04-21] MEDS: KETOROLAC 15 MG/1 ML VIAL IV SCH ×4 (03:40→21:00)
[2020-04-21 04:35] LABS: Basophils % 0.3 % (0.0-0.8); Eosinophils # 0.1 10*3/uL (0.0-0.87); Eosinophils % 1.8 % (0.00-10.9); Hematocrit 29.3 VOL% (35.7-47.0); Immature Granulocytes % 0.6 %; Immature Granulocytes Absolute 0.04 #; Lymphocytes # 0.7 10*3/uL (1.4-4.0); Lymphocytes % 9.9 % (21.3-54.2); Mean Corpuscular HGB Conc 30.7 GM/DL (32-36); Mean Corpuscular Volume 79.4 FL (87-102); Monocytes % 5.9 % (1.7-12.7); Neutrophils % 81.5 % (38.7-73.9); Platelet Count 131 T/CUMM (130-400); Red Blood Count 3.69 MC/CUMM (3.8-5.5); Red Cell Distribution Width 27.7 % (9.3-17.3)
[2020-04-21 04:36] LABS: White Blood Count 6.8 T/CUMM (4-12)
[2020-04-21 05:02] LABS: Calcium 8.2 MG/DL (8.5-10.1); Osmolality,Calculated 271.2 MOS/KG (273-304); Potassium 3.8 MMOL/L (3.5-5.1)
[2020-04-21 05:30] LABS: Platelet Estimate Adequate
[2020-04-21 05:31] LABS: Anisocytosis 1+; Tear Drop Cells Few
[2020-04-21] MEDS: LEVOTHYROXINE 150 MCG TABLET PO SCH (05:55)
[2020-04-21] MEDS: PANTOPRAZOLE 40 MG TABLET PO SCH (09:27)
[2020-04-21] MEDS: FLUoxetine 20 MG CAPSULE PO SCH (09:27)
[2020-04-21] MEDS: DOCUSATE SODIUM 100 MG CAPSULE PO SCH (09:27)
[2020-04-21] MEDS: ASCORBIC ACID 500 MG TABLET PO SCH ×2 (09:27→20:59)
[2020-04-21] MEDS: hydroCHLOROthiazide 25 MG TABLET PO SCH (09:27)
[2020-04-21] MEDS: GABAPENTIN 600 MG TABLET PO SCH ×3 (09:27→20:59)
[2020-04-21] MEDS: ASPIRIN EC 81 MG TABLET PO SCH (09:27)
[2020-04-21] MEDS: FERROUS SULFATE 325 MG TABLET PO SCH (09:28)
[2020-04-21] MEDS: NICOTINE 14 MG/24 HR PATCH TRANSDERM SCH ×2 (09:28→21:34)
[2020-04-21] MEDS: POTASSIUM CHLORIDE 20 MEQ TABLET PO PRN ×2 (09:28→09:29)
[2020-04-21] MEDS: CHLORHEXIDINE 0.12% ORAL RINSE 60 ML BOTTLE SWISH/SPIT SCH ×2 (09:29→21:00)
[2020-04-21] MEDS: ROSUVASTATIN 10 MG TABLET PO SCH (20:59)
[2020-04-21] MEDS: ZALEPLON 5 MG CAPSULE PO PRN (20:59)
[2020-04-21] MEDS: amLODIPine 5 MG TABLET PO SCH (20:59)
[2020-04-22] MEDS: LEVALBUTEROL 0.63 MG/3 ML NEB RESP TX SCH ×4 (00:34→19:28)
[2020-04-22] MEDS: KETOROLAC 15 MG/1 ML VIAL IV SCH ×4 (04:11→22:07)
[2020-04-22 05:55] LABS: Basophils % 0.3 % (0.0-0.8); Eosinophils # 0.3 10*3/uL (0.0-0.87); Hematocrit 29.7 VOL% (35.7-47.0); Immature Granulocytes % 0.4 %; Immature Granulocytes Absolute 0.03 #; Lymphocytes # 0.5 10*3/uL (1.4-4.0); Lymphocytes % 7.5 % (21.3-54.2); Mean Corpuscular HGB Conc 30.3 GM/DL (32-36); Mean Corpuscular Volume 79.6 FL (87-102); Mean Platelet Volume 10.7 FL (9.6-12.0); Monocytes % 6.6 % (1.7-12.7); Neutrophils % 81.2 % (38.7-73.9); Platelet Count 146 T/CUMM (130-400); Red Blood Count 3.73 MC/CUMM (3.8-5.5); Red Cell Distribution Width 27.2 % (9.3-17.3); White Blood Count 6.9 T/CUMM (4-12)
[2020-04-22 06:10] LABS: Alanine Aminotransferase 33 U/L (13-56); Albumin 2.5 G/DL (3.4-5.0); Alkaline Phosphatase 148 U/L (45-117); Aspartate Amino Transferase 49 U/L (0-37); Bilirubin,Indirect 0.5 MG/DL (0.0-1.0); Blood Urea Nitrogen 19 MG/DL (7-18); Calcium 8.4 MG/DL (8.5-10.1); Carbon Dioxide 29 MMOL/L (21-32); Estimated Glom Filtration Rate 85 ML/MIN; Glucose 94 MG/DL (74-106); Osmolality,Calculated 269.2 MOS/KG (273-304); Potassium 4.8 MMOL/L (3.5-5.1); Sodium 134 MMOL/L (136-145); Total Protein 5.8 G/DL (6.4-8.3)
[2020-04-22 06:13] LABS: Platelet Estimate Adequate
[2020-04-22 06:14] LABS: Ovalocytes Few
[2020-04-22 06:15] LABS: Anisocytosis 3+; Burr Cells Few
[2020-04-22] MEDS: LEVOTHYROXINE 150 MCG TABLET PO SCH (06:30)
[2020-04-22] MEDS: FLUoxetine 20 MG CAPSULE PO SCH (09:23)
[2020-04-22] MEDS: ASCORBIC ACID 500 MG TABLET PO SCH ×2 (09:23→20:39)
[2020-04-22] MEDS: hydroCHLOROthiazide 25 MG TABLET PO SCH (09:23)
[2020-04-22] MEDS: GABAPENTIN 600 MG TABLET PO SCH ×3 (09:23→20:39)
[2020-04-22] MEDS: DOCUSATE SODIUM 100 MG CAPSULE PO SCH (09:23)
[2020-04-22] MEDS: ASPIRIN EC 81 MG TABLET PO SCH (09:23)
[2020-04-22] MEDS: PANTOPRAZOLE 40 MG TABLET PO SCH (09:23)
[2020-04-22] MEDS: FERROUS SULFATE 325 MG TABLET PO SCH (09:24)
[2020-04-22] MEDS: CHLORHEXIDINE 0.12% ORAL RINSE 60 ML BOTTLE SWISH/SPIT SCH ×2 (11:08→20:42)
[2020-04-22] MEDS: ACETAMINOPHEN 325 MG TABLET PO PRN (12:56)
[2020-04-22] MEDS: amLODIPine 5 MG TABLET PO SCH (20:39)
[2020-04-22] MEDS: ZALEPLON 5 MG CAPSULE PO PRN (20:39)
[2020-04-22] MEDS: NICOTINE 14 MG/24 HR PATCH TRANSDERM SCH (22:06)
[2020-04-22] MEDS: CLORAZEPATE 7.5 MG TABLET PO PRN (22:15)
[2020-04-23] MEDS: LEVALBUTEROL 0.63 MG/3 ML NEB RESP TX SCH ×4 (00:38→19:03)
[2020-04-23] MEDS: traMADol 50 MG TABLET PO PRN (02:36)
[2020-04-23] MEDS: KETOROLAC 15 MG/1 ML VIAL IV SCH ×4 (03:52→21:18)
[2020-04-23] MEDS: LEVOTHYROXINE 150 MCG TABLET PO SCH (05:30)
[2020-04-23 06:34] LABS: Basophils % 0.3 % (0.0-0.8); Eosinophils # 0.4 10*3/uL (0.0-0.87); Eosinophils % 5.6 % (0.00-10.9); Hematocrit 27.8 VOL% (35.7-47.0); Hemoglobin 8.8 GM/DL (12.0-16.0); Immature Granulocytes % 0.8 %; Immature Granulocytes Absolute 0.05 #; Lymphocytes # 0.5 10*3/uL (1.4-4.0); Lymphocytes % 8.2 % (21.3-54.2); Mean Corpuscular HGB Conc 31.7 GM/DL (32-36); Mean Corpuscular Volume 77.2 FL (87-102); Mean Platelet Volume 10.4 FL (9.6-12.0); Monocytes % 7.6 % (1.7-12.7); Neutrophils % 77.5 % (38.7-73.9); Platelet Count 143 T/CUMM (130-400); Red Cell Distribution Width 26.5 % (9.3-17.3); White Blood Count 6.2 T/CUMM (4-12)
[2020-04-23 06:57] LABS: Hypochromasia 1+; Microcytosis 1+
[2020-04-23 06:58] LABS: Ovalocytes Slight; Platelet Estimate Adequate
[2020-04-23 07:06] LABS: Alanine Aminotransferase 36 U/L (13-56); Albumin 2.4 G/DL (3.4-5.0); Alkaline Phosphatase 174 U/L (45-117); Aspartate Amino Transferase 42 U/L (0-37); Bilirubin,Indirect 0.8 MG/DL (0.0-1.0); Blood Urea Nitrogen 21 MG/DL (7-18); Calcium 8.5 MG/DL (8.5-10.1); Carbon Dioxide 28 MMOL/L (21-32); Estimated Glom Filtration Rate 74 ML/MIN; Glucose 83 MG/DL (74-106); Osmolality,Calculated 265.5 MOS/KG (273-304); Potassium 4.5 MMOL/L (3.5-5.1); Sodium 132 MMOL/L (136-145); Total Protein 5.8 G/DL (6.4-8.3)
[2020-04-23] MEDS ORDERED: traMADol 50 MG TABLET PO PRN (09:52)
[2020-04-23] MEDS: hydroCHLOROthiazide 25 MG TABLET PO SCH (09:57)
[2020-04-23] MEDS: ASPIRIN EC 81 MG TABLET PO SCH (09:57)
[2020-04-23] MEDS: DOCUSATE SODIUM 100 MG CAPSULE PO SCH (09:57)
[2020-04-23] MEDS: FERROUS SULFATE 325 MG TABLET PO SCH (09:58)
[2020-04-23] MEDS: GABAPENTIN 600 MG TABLET PO SCH ×3 (09:59→21:18)
[2020-04-23] MEDS: CHLORHEXIDINE 0.12% ORAL RINSE 60 ML BOTTLE SWISH/SPIT SCH ×2 (09:59→21:18)
[2020-04-23] MEDS: FLUoxetine 20 MG CAPSULE PO SCH (10:00)
[2020-04-23] MEDS: PANTOPRAZOLE 40 MG TABLET PO SCH (10:00)
[2020-04-23] MEDS: ASCORBIC ACID 500 MG TABLET PO SCH ×2 (10:01→21:18)
[2020-04-23] MEDS: CLORAZEPATE 7.5 MG TABLET PO PRN ×2 (10:52→21:21)
[2020-04-23] MEDS: NICOTINE 14 MG/24 HR PATCH TRANSDERM SCH (10:52)
[2020-04-23] MEDS: amLODIPine 5 MG TABLET PO SCH (21:18)
[2020-04-23] MEDS: ZALEPLON 5 MG CAPSULE PO PRN (21:19)
[2020-04-24] MEDS: LEVALBUTEROL 0.63 MG/3 ML NEB RESP TX SCH ×2 (01:38→07:16)
[2020-04-24] MEDS: KETOROLAC 15 MG/1 ML VIAL IV SCH ×2 (04:11→09:52)
[2020-04-24 05:00] LABS: Calcium 8.3 MG/DL (8.5-10.1); Osmolality,Calculated 267.4 MOS/KG (273-304); Potassium 4.6 MMOL/L (3.5-5.1)
[2020-04-24] MEDS: LEVOTHYROXINE 150 MCG TABLET PO SCH (05:53)
[2020-04-24 06:13] LABS: Basophils % 0.6 % (0.0-0.8); Eosinophils # 0.3 10*3/uL (0.0-0.87); Eosinophils % 6.4 % (0.00-10.9); Hemoglobin 8.5 GM/DL (12.0-16.0); Immature Granulocytes % 0.8 %; Immature Granulocytes Absolute 0.04 #; Lymphocytes # 0.3 10*3/uL (1.4-4.0); Lymphocytes % 6.6 % (21.3-54.2); Mean Corpuscular HGB Conc 30.4 GM/DL (32-36); Mean Corpuscular Volume 79.1 FL (87-102); Mean Platelet Volume 10.2 FL (9.6-12.0); Monocytes % 9.2 % (1.7-12.7); Neutrophils % 76.4 % (38.7-73.9); Platelet Count 167 T/CUMM (130-400); Red Blood Count 3.54 MC/CUMM (3.8-5.5); Red Cell Distribution Width 26.5 % (9.3-17.3); White Blood Count 5.1 T/CUMM (4-12)
[2020-04-24 06:42] LABS: Hypochromasia 1+; Microcytosis 1+; Ovalocytes Slight; Platelet Estimate Adequate
[2020-04-24] MEDS: PANTOPRAZOLE 40 MG TABLET PO SCH (09:50)
[2020-04-24] MEDS: ASPIRIN EC 81 MG TABLET PO SCH (09:50)
[2020-04-24] MEDS: CLORAZEPATE 7.5 MG TABLET PO PRN (09:50)
[2020-04-24] MEDS: FLUoxetine 20 MG CAPSULE PO SCH (09:51)
[2020-04-24] MEDS: GABAPENTIN 600 MG TABLET PO SCH (09:51)
[2020-04-24] MEDS: ASCORBIC ACID 500 MG TABLET PO SCH (09:51)
[2020-04-24] MEDS: FERROUS SULFATE 325 MG TABLET PO SCH (09:51)
[2020-04-24] MEDS: hydroCHLOROthiazide 25 MG TABLET PO SCH (09:52)
[2020-04-24] MEDS: DOCUSATE SODIUM 100 MG CAPSULE PO SCH (09:59)
[2020-04-24] MEDS: CHLORHEXIDINE 0.12% ORAL RINSE 60 ML BOTTLE SWISH/SPIT SCH (10:00)
[2020-04-24] MEDS: NICOTINE 14 MG/24 HR PATCH TRANSDERM SCH (10:00)
[2020-04-24 12:08] VITALS: BP 123/66
== END 2020-04-24 12:25 | disposition home health service (06) | DRG 236 ==
LOC: EDBD → EDUNIT# → N.EDINP 13:45 → N.ED 13:45 → SUATTDRO 16:28 → N.TELEN 17:54 → SUATTDRO 04-17 07:11 → N.CVR 04-17 11:04 → N.TELES 04-18 17:22
PROVIDERS: ADMIT Family Medicine